=== PATIENT | female | born 1990 | race African-American/Black ===

== ENCOUNTER 2019-05-30 16:19 | Inpatient (IN) | payer BC, MEDICAID ==
[2019-05-30 18:57] LABS: ABS Basophils 0.1 10^3/ul (0-0.2); ABS Eosinophils 0.2 10^3/ul (0-0.6); ABS Lymphocytes 1.8 10^3/ul (1.0-4.8); ABS Monocytes 0.6 10^3/ul (0-0.8); ABS Neutrophils 7.8 10^3/ul (1.5-7.7); Eosinophil % 1.8 %; Hematocrit 32 % (35-47); Hemoglobin 11.1 g/dL (12.0-16.0); Lymphocyte % 16.9 %; Mean Corpuscular HGB Conc 35 g/dL (31-36); Mean Corpuscular Hemoglobin 30 pg (27-31); Mean Corpuscular Volume 87 fL (80-97); Mean Platelet Volume 8.2 fL (7.4-10.4); Platelet Count 230 10^3/uL (150-450); Red Blood Count 3.66 10^6 /uL (3.70-4.87); Red Cell Distribution Width 13 % (10-15); White Blood Count 10.4 10^3/uL (3.5-10.8)
--- NOTE | 2019-05-30 19:02 | ED ---
Psychiatric Complaint - HPI Summary HPI Summary: Patient is a 29 y/o F presenting to ED for SI. She denies plan of SI. Patient has been hospitalized for psychiatric issues three years ago. PMHx of bipolar disorder and PTSD. She denies any other medical problems or symptoms. Patient reports she is unsure of FMHx. - History Of Current Complaint Chief Complaint: EDMentalHealth Time Seen by Provider: 05/30/19 17:09 Hx Obtained From: Patient Hx Last Menstrual Period: 08/13/17 Onset/Duration: Still Present Timing: Constant Severity Currently: None - pain denied on triage Character: Depressed Has Suicidal: Reports: Thoughts. Denies: With A Plan - Allergies/Home Medications Allergies/Adverse Reactions: Allergies Allergy/AdvReac Type Severity Reaction Status Date / Time No Known Allergies Allergy Verified 04/26/19 09:26 Home Medications: Home Medications Ranitidine TAB (NF) [Zantac TAB (NF)] 150 mg PO BID 05/30/19 [History Confirmed 05/30/19] lamoTRIgine [Lamotrigine] 50 mg PO DAILY 05/30/19 [History Confirmed 05/30/19] PMH/Surg Hx/FS Hx/Imm Hx Endocrine/Hematology History: Denies: Hx Diabetes Cardiovascular History: Denies: Hx Hypertension Respiratory History: Reports: Hx Asthma - EXERCISE INDUCED History: Denies: Hx Renal Disease Sensory History: Reports: Hx Contacts or Glasses Opthamlomology History: Reports: Hx Contacts or Glasses Psychiatric History: Reports: Hx Anxiety, Hx Depression, Hx Post Traumatic Stress Disorder, Hx Bipolar Disorder, Hx Substance Abuse Denies: Hx Eating Disorder, Hx of Violent Episodes Against Others - Surgical History Surgery Procedure, Year, and Place: cholecystectomy 2006 Infectious Disease History: No Infectious Disease History: Denies: History Other Infectious Disease, Traveled Outside the [place] in Last 30 Days - Family History Known Family History: Negative: Cardiac Disease, Hypertension, Diabetes - Social History Alcohol Use: Rare Hx Substance Use: Yes Substance Use Type: Reports: None Substance Use Comment - Amount & Last Used: marijuana occasionaly Hx Tobacco Use: Yes Smoking Status (MU): Former Smoker Type: Cigarettes Amount Used/How Often: 1/4 PPD Length of Time of Smoking/Using Tobacco: 10 YEARS Have You Smoked in the Last Year: Yes Review of Systems Negative: Fever - on vitals, temp is 97.4 F Psychological: Other - positive - SI w/ no plan Positive: Depressed All Other Systems Reviewed And Are Negative: Yes Physical Exam - Summary Physical Exam Summary: General: Well appearing, no distress HEENT: PERRL Cardiovascular: Skin is well perfused Pulmonary: No respiratory distress, no tachypnea Abdomen: Non-distended Skin: Warm, pink, dry MSK: No edema Neuro: A&Ox3 Psych: Depressed, Positive SI Triage Information Reviewed: Yes Vital Signs On Initial Exam: Initial Vitals Temp Pulse Resp BP Pulse Ox 97.4 F 70 16 136/69 99 05/30/19 16:42 05/30/19 16:42 05/30/19 16:42 05/30/19 16:42 05/30/19 16:42 Vital Signs Reviewed: Yes Diagnostics - Vital Signs Vital Signs Temp Pulse Resp BP Pulse Ox 05/30/19 16:42 97.4 F 70 16 136/69 99 - Laboratory Lab Results: Lab Results 05/30/19 Range/Units 18:49 WBC 10.4 (3.5-10.8) 10^3/uL RBC 3.66 L (3.70-4.87) 10^6 /uL Hgb 11.1 L (12.0-16.0) g/dL Hct 32 L (35-47) % MCV 87 (80-97) fL MCH 30 (27-31) pg MCHC 35 (31-36) g/dL RDW 13 (10-15) % Plt Count 230 (150-450) 10^3/uL MPV 8.2 (7.4-10.4) fL Neut % (Auto) 74.8 % Lymph % (Auto) 16.9 % Ida % (Auto) 5.7 % Eos % (Auto) 1.8 % Baso % (Auto) 0.8 % Absolute Neuts (auto) 7.8 H (1.5-7.7) 10^3/ul Absolute Lymphs (auto) 1.8 (1.0-4.8) 10^3/ul Absolute Monos (auto) 0.6 (0-0.8) 10^3/ul Absolute Eos (auto) 0.2 (0-0.6) 10^3/ul Absolute Basos (auto) 0.1 (0-0.2) 10^3/ul Absolute Nucleated RBC 0.0 10^3/ul Nucleated RBC % 0.0 Result Diagrams: 05/30/19 18:49 05/30/19 18:49 Lab Statement: Any lab studies that have been ordered have been reviewed, and results considered in the medical decision making process. Re-Evaluation - Re-Evaluation First Eval Re-Evaluation Time: 17:23 Comment: Patient was medically cleared for [facility]. Course/Dx - Differential Dx/Clinical Impression Provider Diagnosis: Depressive disorder - Physician Notifications Discussed Care Of Patient With: Miki Roger Time Discussed With Above Provider: 18:30 Instructed by Provider To: Other - MH worker Navarro reports that the patient's case was reviewed by Dr. Roger, patient will be a [place] [facility] [place] - Sign-Out/Discharge Documenting (check all that apply): Patient Departure - admit Patient Received Moderate/Deep Sedation with Procedure: No - Discharge Plan Condition: Stable [place] [place]errals: No Primary Care Phys,NOPCP [Primary Care Provider] - Additional Instructions: Please acyclovir 3 times a day for 10 days. Please take Keflex 500 twice a day for 5 days. - Billing Disposition and Condition Condition: STABLE Disposition: [place] [facility] [place] Attestation Statements Document Initiated by Scribe: Yes Documenting Scribe: KARLA WOODSON Provider For Whom Davionibharjeet is Documenting (Include Credential): FERCHO DENT MD Scribe Attestation: IKARLA, scribed for FERCHO DENT MD on 05/30/19 at 2014. Scribe Documentation Reviewed: Yes Provider Attestation: The documentation as recorded by the KARLA love accurately reflects the service I personally performed and the decisions made by me, FERCHO DENT MD Status of Scribe Document: Viewed
[2019-05-30 19:14] LABS: ALT 18 U/L (7-52); AST 21 U/L (13-39); Albumin 3.6 g/dL (3.2-5.2); Albumin/Globulin Ratio 1.3 (1-3); Alkaline Phosphatase 61 U/L (34-104); Anion Gap 8 mmol/L (2-11); BUN/Creatinine Ratio 16.7 (8-20); Blood Urea Nitrogen 9 mg/dL (6-24); CO2 Carbon Dioxide 22 mmol/L (22-32); Calcium 8.8 mg/dL (8.6-10.3); Chloride 106 mmol/L (101-111); EGFR African American 162.7 (>60); EGFR Non-African American 134.4 (>60); Globulin 2.8 g/dL (2-4); Glucose 84 mg/dL (70-100); Potassium 3.6 mmol/L (3.5-5.0); Sodium 136 mmol/L (135-145); Total Protein 6.4 g/dL (6.4-8.9)
[2019-05-30 19:42] LABS: Acetaminophen < 15 mcg/mL; Alcohol < 10 mg/dL (<10); Salicylate < 2.50 mg/dL (<30)
[2019-05-30 19:55] LABS: Urine Appearance Cloudy; Urine Bacteria 1+ (Absent); Urine Bilirubin Negative (Negative); Urine Blood Negative (Negative); Urine Color Yellow; Urine Glucose Negative (Negative); Urine Ketones Negative (Negative); Urine Nitrite Negative (Negative); Urine Protein Negative (Negative); Urine Red Blood Cell 1+(3-5/hpf) (Absent); Urine Squamous Epithelial Cell Present (Absent); Urine Urobilinogen Negative (Negative); Urine White Blood Cell Trace(0-5/hpf) (Absent)
[2019-05-30 19:58] LABS: TSH (Thyroid Stimulating Horm) 2.53 mcIU/mL (0.34-5.60)
[2019-05-30 20:01] LABS: Urine Benzodiazepine Screen None Detected (None Detect); Urine Opiates Screen None Detected (None Detect)
[2019-05-30] MEDS ORDERED: Acetaminophen TAB* 325 MG PO PRN (21:17)
[2019-05-30] MEDS ORDERED: Al Hydrox/Mg Hydrox/Simet LIQ* 30 ML UDC PO PRN (21:17)
[2019-05-30] MEDS ORDERED: Metoclopramide TAB* 10 MG PO PRN (21:20)
[2019-05-30] MEDS: Famotidine TAB* 20 MG PO SCH (21:44)
--- OUTSIDE RECORDS SUMMARY | 2019-05-31 01:20 | XMS REPORT | Continuity of Care Document ---
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 Payers Date Identification Numbers Payment Provider Subscriber Policy Number: [id number] [employer] BC/BS [facility] Heraclio Grijalva PayID: [id number] [address] [place] [address] Policy Number: [id number] [place] Heraclio Grijalva PayID: [id number] [address] [place] [address] Policy Number: [id number] [employer] BC/BS [facility] Abida Rg Group Number: [id number] [address] PayID: [id number] [place] [address] Effective: 2011 Policy Number: [employer] BC/BS [place] Yair Grijalva [id number] [place] Expires: 2013 PayID: [id number] [address] [place] [address] Problems Resolved Problems Provider Date Supervison Of Normal Other ISREAL Zayas Onset: 11/16/2012 Resolved: 05/29/2019 Family History Date Family Member(s) Observation Comments Father Unknown Mother A&W Number of Children 2 First Son A&W First Daughter A&W Number of Siblings Siblings: 1 First Brother Asthma Paternal Grandfather Unknown Paternal Grandmother Unknown Maternal Grandfather Unknown Maternal Grandmother Unknown Social History Type Date Description Comments Sex Unknown Education Highest level of education completed is 12th grade Marital Status Patient is single Living Situation Lives with son Pets Household pets include a dog 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 [place] Cigarette Use Smoked 5 cigarettes/ day prior to , quit with Alcohol Denies alcohol use Tobacco Use Start: Unknown End: Patient is a former smoker Unknown Tobacco Use Start: Unknown Patient is a current 3 qd smoker, smokes every day Drug Use Sporadically used marijuana Daily Caffeine Does not consume caffeine Exercise Type/Frequency Exercises sporadically Current Seat Belt/Car Seat Always uses a seat belt Allergies, Adverse Reactions, Alerts Description No Known Drug Allergies Medications Active Medications SIG Qnty Indications Ordering Provider Date Ranitidine 150 take one tablet by 60tabs Serina Reyna, [facility] 05/29/2019 Maximum Strength mouth daily. May increased to bid 150mg Tablets if needed Lamotrigine 1 po qd Unknown 25mg Tablets 1 by mouth every Unknown Tablets day History Medications Diclegis take 2 tabs qhs. if 100tabs [place] Damon, 02/06/2019 - 10-10mg symptoms persist, add [facility] 05/01/[address] 1 tab qam starting day 3. if symptoms persist, add 1 tab q afternoon starting day4 Promethazine HCL 1 tab by mouth every 30tabs [place] Damon, 02/06/2019 - 12.5mg 4-6 hours as needed [facility] 04/30/2019 Tablets for nausea and vomiting Zofran 1 tab sublingually 30tabs Susana 01/29/2019 - 4mg Tablets every 6-8 hours as Minerva, [facility] 04/30/2019 needed nausea/vomiting Levora 0.15/30-28 1 po qd 28tabs Martha, 11/29/2013 - MD Joan 01/29/2019 0.15-30mg-mcg Tablets No Active Medications Unknown 08/29/2013 - 11/29/2013 Zantac 1 pill by mouth twice 60tabs Tita Camargo 04/20/2013 - 150mg Tablets a day Vamshi [facility] 07/30/2013 Ferrous Gluconate 1 po qd 30tabs Yung Arango 03/22/2013 - Artur Diego 07/30/2013 324(38Fe) mg Tablets Zofran Odt 1 tab sublingually q 30tabs Serina Reyna, 10/23/2012 - 4mg Tablets 6-8 hours prn [facility] 03/11/2013 Dispers nausea/vomiting Diflucan take 1 tablet now, 2tabs Lucy Swift, 06/12/2008 - 200mg Tablets repeat in 48 hours [facility] 06/17/2008 prn Metrogel-Vaginal 1 applicator qhs x 5 Lucy Swift, 06/12/2008 - 0.75% days CNM 06/17/2008 Gel Pyridium 1 tid X 2 Days 6tabs Lucy Swift, 01/16/2008 - 100mg Tablets [facility] 06/12/2008 Ortho-Cyclen 1 PO qd Lucy Swift, 02/07/2007 - CN 06/12/2008 0.035mg;0.25 mg Tablets Flagyl 1 po bid x 7 days 14tabs Rebeka Stocktonkins, 08/27/2006 - 500mg Tablets CN 02/07/2007 Vitamins, 1 po qd 30tabs Cam Larry, 07/21/2006 - Chewable C.N.M. 02/07/2007 Tablets Nuvaring Unknown - Ring 10/23/2012 Prozac Unknown - 40mg Capsules 10/23/2012 + Dha 1 po qd 90units Unknown - 07/30/2013 27-1&250mg Misc Vital Signs Date Vital Result Comment 05/02/2019 3:05pm BP Systolic 112 mmHg BP Diastolic 66 mmHg Height 64 inches 5'4" Weight 192.00 lb BMI (Body Mass Index) 33.0 kg/m2 3 Parity 2 03/14/2019 9:55am Height 64 inches 5'4" 3 Parity 2 03/05/2019 1:05pm BP Systolic 108 mmHg BP Diastolic 62 mmHg Height 64 inches 5'4" Weight 181.00 lb BMI (Body Mass Index) 31.1 kg/m2 Last Menstrual Period [id number] 3 Parity 2 11/29/2013 1:51pm BP Systolic 122 mmHg BP Diastolic 78 mmHg Height 64 inches 5'4" Weight 190.00 lb BMI (Body Mass Index) 32.6 kg/m2 Last Menstrual Period [id number] 2 Parity 2 10/04/2013 2:25pm BP Systolic 136 mmHg BP Diastolic 64 mmHg Height 64.50 inches 5'4.50" Weight 192.00 lb BMI (Body Mass Index) 32.4 kg/m2 Last Menstrual Period [id number] 08/29/2013 10:25am BP Systolic 102 mmHg BP Diastolic 64 mmHg Height 64.50 inches 5'4.50" Weight 195.00 lb BMI (Body Mass Index) 33.0 kg/m2 Last Menstrual Period [id number] 2 Parity 2 07/11/2013 11:38am BP Systolic 118 mmHg BP Diastolic 66 mmHg Height 64.75 inches 5'4.75" Weight 199.00 lb BMI (Body Mass Index) 33.4 kg/m2 Last Menstrual Period [id number] del 06/05/13 2 Parity 2 11/16/2012 10:11am BP Systolic 110 mmHg BP Diastolic 62 mmHg Height 64.75 inches 5'4.75" Weight 154.00 lb BMI (Body Mass Index) 25.8 kg/m2 Last Menstrual Period [id number] 2 Parity 1 06/12/2008 1:11pm BP Systolic 118 mmHg BP Diastolic 64 mmHg Weight 194.00 lb Last Menstrual Period [id number] 02/07/2007 1:43pm BP Systolic 140 mmHg BP Diastolic 66 mmHg Weight 186.00 lb Last Menstrual Period [id number] 06/24/2006 8:40pm Height 64 inches 5'4" Weight 170.00 lb BMI (Body Mass Index) 29.2 kg/m2 Results Test Date Facility Test Result H/L Range Note THC Confirmation 04/02/2019 [facility] Urine Carboxy 384 ng/mL 1 [place] [address] THC Confirm [phone] Urine THC Interpretation Positive. 2 Afp,Screen 04/02/2019 [facility] Results [place] [address] [phone] Neural Tube Defect Estimate SEE BELOW 3 Collection Date 04/02/19 Maternal Date of 89 Calculated Age At DAIN 29 years Maternal Weight 189 lbs Insulin Dependent Diabetes No Current Cigarette Smoking Stat non-smoker Patient Race Black Number of Fetuses 1 Number of Chorions Monochorionic Ivf No Prev Preg w/Neural Tube Defect N o Patient/Father of Baby Has NTD N o Initial Or Repeat Testing Initial testing Physician Phone Number [phone] DAIN by LMP 09/20/19 GA On Collection By Dates SEE BELOW wk,d 4 GA Used In Risk Estimate Dates estimate Afp 24.6 ng/mL Afp MoM 0.76 MoM <2.50 Interpretation See Comment 5 Additional Comments See Comment 6 Recommended Follow Up None. General Test Information See Comment 7 Urine Drug 04/02/2019 [facility] Urine Amphetamine Negative ng/ mL 8 Comp 20 [place] [address] [phone] Urine Barbiturates Negative ng/mL 9 Urine Benzodiazepines Negative ng/mL 10 Urine Cocaine Negative ng/mL 11 Urine Phencyclidine Negative ng/mL Cutoff: 25 Urine Tetrahydrocannabinol Presumptive Posi <SEE NOTE> Abnormal Cutoff: 50 12 ng/mL Creatinine, Urine 147.0 mg/dL Specific Strawberry 1.011 pH 7.8 Oxidants Negative 13 Adulterants Comment Normal Codeine, Ur Not Detected ng/mL Cutoff: 25 14 Ezzyjqr-0-innc-glucuronide, Ur Not Detected ng/mL 15 Morphine, Ur Not Detected ng/mL Cutoff: 25 16 Ohfdbcoy-6-fdlb-glucuronide, U Not Detected ng/mL 17 6-monoacetylmorphine, Ur Not Detected ng/mL Cutoff: 25 18 Hydrocodone, Ur Not Detected ng/mL Cutoff: 25 19 Norhydrocodone, Ur Not Detected ng/mL Cutoff: 25 20 Dihydrocodeine, Ur Not Detected ng/mL Cutoff: 25 21 Hydromorphone, Ur Not Detected ng/mL Cutoff: 25 22 Mzaxwporkpzxh9vqnyzuenqxpmiqt Not Detected ng/mL 23 Oxycodone, Ur Not Detected ng/mL Cutoff: 25 24 Noroxycodone, Ur Not Detected ng/mL Cutoff: 25 25 Oxymorphone, Ur Not Detected ng/mL Cutoff: 25 26 Wbnrfmllggg-2-mxzl-glucuronide Not Detected ng/mL 27 Noroxymorphone, Ur Not Detected ng/mL Cutoff: 25 28 Fentanyl, Ur Not Detected ng/mL Cutoff: 2 29 Norfentanyl, Ur Not Detected ng/mL Cutoff: 2 30 Meperidine, Ur Not Detected ng/mL Cutoff: 25 31 Normeperidine, Ur Not Detected ng/mL Cutoff: 25 32 Naloxone, Ur Not Detected ng/mL Cutoff: 25 33 Koaxbbje-0-foxw-glucuronide, U Not Detected ng/mL 34 Methadone, Ur Not Detected ng/mL Cutoff: 25 35 Eddp, Ur Not Detected ng/mL Cutoff: 25 36 Propoxyphene, Ur Not Detected ng/mL Cutoff: 25 37 Norpropoxyphene, Ur Not Detected ng/mL Cutoff: 25 38 Tramadol, Ur Not Detected ng/mL Cutoff: 25 39 O-desmethyltramadol, Ur Not Detected ng/mL Cutoff: 25 40 Tapentadol, Ur Not Detected ng/mL Cutoff: 25 41 N-desmethyltapentadol, Ur Not Detected ng/mL Cutoff: 50 42 Skyqqodzfi-kwrr-xisshuplvyx, U Not Detected ng/mL 43 Buprenorphine, Ur Not Detected ng/mL Cutoff: 5 44 Norbuprenorphine, Ur Not Detected ng/mL Cutoff: 5 45 Norbuprenorphine glucuronide Not Detected ng/mL Cutoff: 20 46 Opioid Interpretation See Comment 47 Urine Culture And 03/05/2019 [facility] Urine Culture SEE RESULT [address] [place] [address] BELOW [phone] GC/Chlamydia Dna 03/05/2019 [facility] Chlam[place] [address] trachomatis [phone] Rna Neisseria gonorrhoeae (GC) Rna Negative Negative Laboratory test 03/05/2019 [facility] Cytology SEE RESULT [address] [place] [address] BELOW [phone] Lead 03/05/2019 [facility] Lead,Venous, B < 1.0 g/dL 0.0- 4. 50 [place] [address] 9 [phone] Venous/Capillary Venous Submitting Laboratory Phone [phone] Chromosomes 13, 18, 21 03/05/2019 [facility] Chromosome 13 Negative N 52 + Sex Chromosome Aneuploidy Chromosome 18 Aneuploidy Negative N 53 Chromosome 21 Aneuploidy Negative N 54 Sex Chromosome Analysis Male N 55 PDF Report SEE IMAGE CF + Sma 03/05/2019 [facility] cystic fibrosis Negative N spinal muscular atrophy Negative N 56 PDF Report SEE IMAGE PNL No 03/05/2019 [facility] Rubella Screen Immune Immune 57 [place] [address] [phone] Hemoglobin A1c 5.0 % N 4.0-5.6 58 Hepatitis B Surface Ag Nonreactive Nonreactive 59 Syphillis Igg W/Reflex RPR Negative Negative 60 HIV 1/2 AB 03/05/2019 [facility] HIV 1 2 Nonreactive Nonreactive [address] [place] [address] Antibody [phone] Type And 03/05/2019 [facility] [place] [address] Blood Type [phone] Antibody Screen NEGATIVE CBC With No 03/05/2019 [facility] White Blood 8.4 10^3/uL N 3.5-10.8 [place] [address] Count [phone] Red Blood Count 3.78 10^6/uL N 3.70-4.87 Hemoglobin 11.6 g/dL Low 12.0-16.0 Hematocrit 35 % N 35-47 Mean Corpuscular Volume 93 fL N 80-97 Mean Corpuscular Hemoglobin 31 pg N 27-31 Mean Corpuscular HGB Conc 33 g/dL N 31-36 Red Cell Distribution Width 14 % N 10.5-15 Platelet Count 244 10^3/uL N 150-450 Mean Platelet Volume 9.5 fL N 7.4-10.4 GC/Chlamydia Dna 08/29/2013 [facility] GC/Chlamydia Rna (SEE NOTE) [address] [place] [address] [phone] Laboratory test 06/02/2013 [facility] Amnisure No Membrane [address] [place] [address] Rupt <SEE [phone] NOTE> Laboratory test 05/21/2013 [facility] B Strep (SEE NOTE) [address] [place] [address] Culture Screen [phone] Glucose Tolerance 03/21/2013 [facility] GTT 2HR (SEE NOTE) 65 [place] [address] Gestational [phone] CBC With No Diff 03/21/2013 [facility] White Blood Count 10.0 10 ^3/uL 4.8- [place] [address] 10.8 [phone] Red Blood Count 3.47 10^6/uL Low 4.0-5.4 Hemoglobin 10.5 g/dL Low 12.0-16.0 Hematocrit 32 % Low 35-47 Mean Corpuscular Volume 92 fL 80-97 Mean Corpuscular Hemoglobin 30 pg 27-31 Mean Corpuscular HGB Conc 33 g/dL 31-36 Red Cell Distribution Width 13 % 10.5-15 Platelet Count 195 10^3/uL 150-450 Mean Platelet Volume 9 um3 7.4-10.4 Sequential Integreated SCRN 2 OK 12/20/2012 [facility] Interpretation SEE BELOW 66 Risk For Ontd UNAVAILABLE Age Risk Down Syndrome 1:1100 GUCCI Down Syndrome Risk 1:3400 <1:270 GUCCI Trisomy 18 Risk <1:5000 <1:100 Calculated Gestational Age 14.9 67 Afp,Serum 36.7 NG/ML Afp Mom 1.24 68 HCG,Serum 63.2 IU/mL HCG Mom 1.68 Estriol,Free 0.22 NG/ML Estriol Mom 0.58 Inhibin A,Dimeric 370 pg/mL Inhibin A Mom 2.09 Lucy-A 737 NG/ML Lucy-A Mom 0.96 NT Mom 0.90 69 Referring Physician Name YUNG DIEGO A Referring Physician Phone [phone] Referring Physician Npi [id number] Specimen # From Part 1 [id number] Date Of 1990 Collection Date 12/20/2012 Maternal Weight 154 LBS Est'd Date Of Delivery 06/12/2013 Nuchal Translucency 1.2 MM [place] Rump Length 57 MM Ultrasound Date 11/30/2012 Nasal Bone NG Mother's Ethnic Origin OTHER Insulin Depend Diabetic NO Repeat Specimen NO Number Of Fetuses 1 HX Of Neural Tube Defects NO Twin B Nasal Bone NG Sequential Integrated SCRN 1 [place] 11/30/2012 [facility] Interpretation SEE BELOW 70 Age Risk Down Syndrome 1:820 GUCCI Down Syndrome Risk IN PROCESS <1:50 GUCCI Trisomy 18 Risk IN PROCESS <1:100 Calculated Gestational Age 12.0 71 Lucy-A 737 NG/ML Lucy-A Mom 0.96 HCG,Serum 73.7 IU/mL HCG Mom 1.23 NT Mom 0.90 72 Referring Physician Name YUNG DIEGO Referring Physician Phone [phone] Referring Physician Npi [id number] Date Of 1990 Collection Date 11/30/2012 Maternal Weight 154 LBS Est'd Date Of Delivery 06/12/2013 DAIN Determined By U/S Mother's Ethnic Origin Number Of Fetuses 1 Insulin Depend Diabetic NO Repeat Specimen NO HX Of Neural Tube Defects NO Brief History (NTD) NOT GIVEN Prev Down Synd NO Donor Egg NO Donor Age:Egg Retrieval NOT GIVEN Ultrasound Date 11/30/2012 Credit Risk Management Director's Name KATHRYN ACOSTA NTQR Credit Risk Management Director Id# [id number] NTQR Location Id# [id number] NTQR Reading Phys Id# [id number] [facility] Credit Risk Management Director Id# NOT GIVEN [place] Rump Length 57 MM Nuchal Translucency 1.2 MM Nasal Bone NOT GIVEN If Twins NOT GIVEN Twin B CRL NOT GIVEN MM Twin B NT NOT GIVEN MM Twin B Nasal Bone NOT GIVEN PNL No 11/16/2012 [facility] Rubella [place] [address] [phone] Hemoglobin A1c 5.2 % Less than 6.0 73 Hepatitis B Surface Antigen Nonreactive Nonreactive 74 RPR 11/16/2012 [facility] Syphilis [place] [address] [phone] RPR Nonreactive Nonreactive RPR Titer TNP Pediatric/Maternal YES CBC With No 11/16/2012 [facility] White Blood 7.2 10^3/uL 4.8 -10.8 [place] [address] Count [phone] Red Blood Count 3.83 10^6/uL Low 4.0-5.4 Hemoglobin 12.0 g/dL 12.0-16.0 Hematocrit 35 % 35-47 Mean Corpuscular Volume 92 fL 80-97 Mean Corpuscular Hemoglobin 31 pg 27-31 Mean Corpuscular HGB Conc 34 g/dL 31-36 Red Cell Distribution Width 13 % 10.5-15 Platelet Count 214 10^3/uL 150-450 Mean Platelet Volume 10 um3 7.4-10.4 Type And Screen 11/16/2012 [facility] [place] [address] [phone] Antibody Screen NEGATIVE HIV 1/2 AB 11/16/2012 [facility] HIV 1 2 Nonreactive Nonreactive [address] [place] [address] Antibody [phone] Urine Culture 11/16/2012 [facility] Urine (SEE NOTE) [address] [place] [address] Culture Sensitivities [phone] GC/Chlamydia Dna 11/16/2012 [facility] GC/Chlamydi (SEE NOTE) [address] [place] [address] a Rna [phone] Laboratory test 11/16/2012 [facility] Cytology RUN DATE: neg [address] [place] [address] <SEE [phone] NOTE> Laboratory test 08/12/2008 [facility] Surgical [address] [place] [address] Pathology --- <SEE [phone] NOTE> GC/Chlamydia Dna 06/12/2008 [facility] GC By NEGATIVE Negative [address] [place] [address] Aptima [phone] CHL By Aptima NEGATIVE Negative 81 Laboratory test 12/12/2006 [facility] Genital For FINAL: [address] [place] [address] GRP B Strep NEGATIVE <SEE [phone] Only NOTE> CBC With 11/01/2006 [facility] White Blood 10.3 CUMM 4.8-10 [place] [address] Count .8 [phone] Abs Basophils 0.1 0-0.2 Abs Eosinophils 0.1 0-0.6 Absolute Neutrophil Count 7.9 High 1.5-7.7 Abs Lymphs 1.4 1.0-4.8 Abs Mononuclear 0.8 0-0.8 Basophil % 1.2 % 0-2 Hematocrit 29 % Low 35-47 Hemoglobin 10.1 g/dL Low 12.0-16.0 Eosinophil % 1.0 % 0-6 Gran % 76.2 % 38-83 Lymph % 13.9 % Low 20-45 Mean Corpuscular HGB Cone 35 g/dL 32-36 Mean Corpuscular Hemoglob 30 pg 27-31 Mean Corpuscular Volume 84 um3 79-97 Mean Platelet Volume 6.9 um3 Low 7.4-10.4 Mononuclear % 7.7 % 1-9 Platelet Count 269 CUMM 150-450 Red Cell Count 3.42 CUMM Low 4.2-5.4 Redcell Distribution WDTH 12 % 10.5-15 Liver Function 11/01/2006 [facility] Albumin/Globulin Ratio 0.8 Low 1-3 [place] [address] [phone] Albumin 2.6 GM/DL Low 3.6-5.4 Alkaline Phosphatase 76 U/L Low 130-390 Alt (SGPT) 10 U/L Low 14-54 Ast (Sgot) 17 U/L 12-42 Bilirubin Direct < 0.1 mg/dL Low 0.1-0.5 Globulin 3.3 GM/DL 2-4 Bilirubin Total 0.1 mg/dL Low 0.4-1.5 Total Protein 5.9 GM/DL Low 6.2-8.1 Urinalysis W/Microscopic 09/15/2006 [facility] [place] [address] [phone] Appearance-Urine CLEAR Bilirubin-Ur NEGATIVE Negative Blood-Urine NEGATIVE Negative Epith Cells-Ur MODERATE Esterase-Urine NEGATIVE Negative Glucose-Urine NEGATIVE Negative Ketones-Urine NEGATIVE Negative Nitrite NEGATIVE Negative PH-Urine 7.0 5-9 Protein-Urine NEGATIVE Negative Jqbayfhlpyhk-Um-LKL NEGATIVE Negative Specific Strawberry-Ur 1.010 1.010-1.030 Amorphous Sed-U 1+ Bacteria-Urine 1+ Mucus Urine LARGE RBC-Urine 0-2 0-2 WBC-Urine 0-2 0-5 DS3 09/15/2006 [facility] Amphetamines Urine [place] [address] Screen [phone] Benzodiazepine Ur Screen NONE DETECTED None Detect Cocaine Metabolites Urine NONE DETECTED None Detect Opiates Urine Screen NONE DETECTED None Detect PCP Urine Screen NONE DETECTED None Detect 83 Cannabinoid Urine Screen NONE DETECTED None Detect Barbituates Urine Screen NONE DETECTED None Detect GC/Chlamydia Dna 08/30/2006 [facility] CHL By NEGATIVE Negative [address] [place] [address] Aptima [phone] GC By Aptima NEGATIVE Negative 85 Laboratory 08/23/2006 [facility] Cytology [address] [place] [address] <SEE NOTE> [phone] 1 06/27/2006 [facility] [place] [address] Surface Ag [phone] Rubella Screen IMMUNE Immune White Blood Count 7.5 CUMM 4.8-10.8 Hematocrit 34 % Low 35-47 87 Hemoglobin 11.2 g/dL Low 12.0-16.0 Mean Corpuscular HGB Cone 33 g/dL 32-36 Mean Corpuscular Hemoglob 30 pg 27-31 Mean Corpuscular Volume 92 um3 79-97 Mean Platelet Volume 9.6 um3 7.4-10.4 Platelet Count 259 CUMM 150-450 88 Red Cell Count 3.68 CUMM Low 4.2-5.4 Redcell Distribution WDTH 15 % 10.5-15 RPR NON REACTIVE Nonreactive 89 1 TS 06/27/2006 [facility] Patient Blood Type O POSITIVE KEN Cortez [phone] Antibody Screen NEGATIVE Laboratory 06/27/2006 [facility] Urine NG 90 test finding KEN Cortez Culture [phone] Sensitivi Vad 06/27/2006 [facility] Vad Final NONREACTIVE Nonreactive 91 KEN Cortez [phone] Vad Form Received YES Nonreactive GC/ZHL On Thin 06/27/2006 [facility] CHL On Thin NEGATIVE Negative 92 Prep KEN Cortez Prep Vial [phone] GC On Thin Prep Vial NEGATIVE Negative 93 Laboratory test 06/24/2006 [facility] Please note COMMENT 94 finding Laboratory test 06/24/2006 [facility] Varicella 3.26 index High 0.00-0.90 95 finding Zoster IgG Hemoglobinopathy 06/24/2006 [facility] Hgb Solubility Negative Negative Profile Hgb A 97.8 % 94.0-98.0 Hgb S 0.0 0.0 Hgb C 0.0 0.0 Hgb A2 2.2 % 0.7-3.1 Hgb F 0.0 % 0.0-2.0 Hgb Variant COMMENT Interpretation COMMENT 96 1 TS 06/24/2006 [facility] Patient Blood Type O POSITIVE KEN Cortez [phone] Antibody Screen NEGATIVE Laboratory test 06/24/2006 [facility] Cytology <SEE 97 finding KEN Cortez NOTE> [phone] 1 REFERENCE VALUE Cutoff: 3.0 2 ADDITIONAL INFORMATION This report is intended for use in clinical monitoring and management of patients. It is not intended for use in employment-related testing. This test was developed and its performance characteristics determined by [facility] in a manner consistent with CLIA requirements. This test has not been cleared or approved by the U.S. Food and Drug Administration. Test Performed by: [facility] - [address] [address] 3 RESULT: 4 RESULT: 15,4 5 RESULT: Screen negative for neural tube defects. 6 RESULT: Reviewed by Mason Acuna M.D. 7 This screening provides an estimation of risk, not a diagnosis. Incorrect or incomplete information may significantly alter results. Results may be unreliable in twin pregnancies with a demise. Results are not available for pregnancies with triplets and higher-order multiples. A positive result occurs when the AFP MoM equals or exceeds 2.5. Screen results and family history influence individual risk. If there is a family history of a neural tube defect, chromosome abnormality, or other inherited condition, consider the option of a genetic consultation. For further information, please contact the maternal screening laboratory at . ADDITIONAL INFORMATION This test was developed and its performance characteristics determined by [facility] in a manner consistent with CLIA requirements. This test has not been cleared or approved by the U.S. Food and Drug Administration. Test Performed by: [facility] - [address] [address] 8 REFERENCE VALUE Cutoff: 500 9 REFERENCE VALUE Cutoff: 200 10 REFERENCE VALUE Cutoff: 100 11 REFERENCE VALUE Cutoff: 150 12 Presumptive Positive Drug confirmation to follow. Presumptive Positive means that the screening method is positive, but the test needs to be run by a confirmatory method before being finalized. ADDITIONAL INFORMATION This report is intended for use in clinical monitoring or management of patients. It is not intended for use in employment-related testing. 13 REFERENCE VALUE Cutoff: 200 mg/L 14 Tylenol 3 15 Metabolite of codeine REFERENCE VALUE Cutoff: 100 16 Ana Luisa Kent MS Contin; Also a minor metabolite (10%) of codeine and can be seen in low concentrations (<2,000 ng/mL) with poppy seed ingestion. 17 Metabolite of morphine REFERENCE VALUE Cutoff: 100 18 Metabolite of heroin 19 Lortab, [place], Vicodin; Also a very minor metabolite of codeine and impurity (<1%) of oxycodone. 20 Metabolite of hydrocodone 21 Metabolite of hydrocodone 22 Dilaudid, Exalgo; Also a metabolite of hydrocodone and a minor (<5%) metabolite of morphine. 23 Metabolite of hydromorphone REFERENCE VALUE Cutoff: 100 24 Endocet, Percocet, Oxycontin 25 Metabolite of oxycodone 26 Numorphan, Opana; Also a metabolite of oxycodone. 27 Metabolite of oxymorphone REFERENCE VALUE Cutoff: 100 28 Metabolite of oxymorphone 29 Actiq, Duragesic, Fentora 30 Metabolite of fentanyl 31 Demerol 32 Metabolite of meperidine 33 Narcan 34 Metabolite of naloxone REFERENCE VALUE Cutoff: 100 35 Dolophine 36 Metabolite of methadone 37 Darvon, Darvocet 38 Metabolite of propoxyphene 39 Tradol, Ultram, Ultracet 40 Metabolite of tramadol 41 Nucynta 42 Metabolite of tapentadol 43 Metabolite of tapentadol REFERENCE VALUE Cutoff: 100 44 Buprenex, Suboxone 45 Metabolite of buprenorphine 46 Metabolite of buprenorphine 47 No opioids were detected. The absence of expected drug(s) and/or drug metabolite(s) may indicate non-compliance, altered pharmacokinetics, inappropriate timing of specimen collection relative to drug administration, diluted/adulterated urine, or limitations of testing. ADDITIONAL INFORMATION This test was developed and its performance characteristics determined by [facility] in a manner consistent with CLIA requirements. This test has not been cleared or approved by the U.S. Food and Drug Administration. Test Performed by: [facility] - [facility] [address] [place] [address] 48 SEE RESULT BELOW Name: HERACLIO GRIJALVA : [address]: Susana Palma [facility] Acct: [id number] Unit: [id number] AGE: 29 Location: [facility] Re03/05/19 SEX: F Status: REG REF SPEC: [id number] PILLO: 03/05/19-[address]: Susana Palma [facility] REQ: [id number] RECD: 03/05/19 STATUS: COMP _ SOURCE: URINE SPDESC: ORDERED: Urine Culture COMMENTS: [id number] Urine Source: Random Procedure Result Reported Site Urine Culture Final 03/06/19- 1615 ML No Growth (<1,000 CFU/mL) * - Main Lab . END OF REPORT DEPARTMENT OF PATHOLOGY, [address] [place] [address] Veto Good M.D. Director [facility] # [id number] SEE RESULT BELOW Name: HERACLIO GRIJALVA : [address]: Susana Palma CNM Acct: [id number] Unit: [id number] AGE: 29 Location: [facility] Re03/05/19 SEX: F Status: REG REF SPEC: [id number] PILLO: 03/05/19-[address] [facility] [address]: Susana Palma CNM REQ: [id number] RECD: 03/06/192592 STATUS: SOUT _ ORDERED: TP IMAGE ANALYS, MBA INTERN PHYS INTERP COMMENTS: [id number] EPITHELIAL CELL ABNORMALITIES Low grade squamous intraepithelial lesion (LSIL) A. Ectocervical/Endocervical Specimen Adequacy: Satisfactory of evaluation Transformation zone component identified Patient Information: HPV: Thin Layer Pap Test w/reflex to high risk HPV RNA testing when ASCUS Actual Specimen Date: 03/05/19 Last Menstrual Date: 12/14/18 Date of Last Specimen: 11/16/12 ?: Y Post Menopausal?: N Hysterectomy?: N Previous Abnormal Pap Smears?:N Signed by and Reported on: Veto Good MD 06/18 3150 This Pap test was evaluated with the assistance of the Broadcast.comPrep Test Imaging System. Due to cytologic findings at the telescope repairer microscope, comprehensive manual rescreening by a Inspector Boiler may be required. The Pap Smear is a screening test designed to aid in the detection of premalignant and malignant conditions of the uterine cervix. It is not a diagnostic procedure and should not be used as the sole means of detecting cervical cancer. Both false- positive and false- negative reports do occur. Depending on your risk status, a Pap smear should be obtained and evaluated every 1-3 years. END OF REPORT DEPARTMENT OF PATHOLOGY, [address] [place] [address] Veto Good M.D. Director [facility] # [id number] ADDITIONAL INFORMATION Testing performed by Inductively Coupled Plasma-Mass Spectrometry (ICP-MS). This test was developed and its performance characteristics determined by [facility] in a manner consistent with CLIA requirements. This test has not been cleared or approved by the U.S. Food and Drug Administration. 51 Test Performed by: [facility] [address] [place] [address] 52 No aneuploidy detected. 53 No aneuploidy detected. 54 No aneuploidy detected. 55 Male: No aneuploidy detected. 56 Negative result: Negative for [id number]>G SNP and SMN1: 2 copies. 57 [id number] 58 Therapeutic target for the treatment of diabetes mellitus patients is <7% HBA1C, and in selective patients <6.0%. Please refer to [place] [employer] diabetic care guidelines for further information. 59 [id number] 61 It is recognized that currently available assays for the detection of antibodies to HIV-1 and/or HIV-2 may not detect all infected individuals. HIV antibodies may be undetectable in some stages of the infection and in some clinical conditions. The performance of this assay has not been established for populations of infants or children. Assayed by Chemiluminescence Microparticle Immunoassay on the Siemens Advia Centaur CP. Values obtained with different methods or kits cannot be used interchangeably.The diagnostic specificity of the ADVIA Centaur 1/O/2 Enhanced assay in the low risk population was 99.90% (6052/6058) with a 95% confidence interval of 99.78 to 99.96%. 62 RUN DATE: 08/31/13 [facility] LAB LIVE PAGE 1 RUN TIME: [address] [place] [address] Specimen Inquiry Name: HERACLIO GRIJALVA : [address]: Halle Serrato Acct: [id number] Unit: [id number] AGE: 23 Location: [facility] Re08/29/13 SEX: F Status: REG REF SPEC: [id number] PILLO: 08/29/13-[address] [facility] [address]: Halle Serrato MD REQ: [id number] RECD: 08/29/13 STATUS: COMP _ SOURCE: ENDOCERVIX SPDESC: ORDERED: GC/Chlam RNA QUERIES: Medent Number [id number] Procedure Result Verified Site Chlamydia Trachomatis RNA Final 08/31/13- 1436 ML NEGATIVE for Chlamydia trachomatis rRNA GC (N. gonorrhoeae) RNA Final 08/31/13- 1425 ML NEGATIVE for Neisseria gonorrhoeae rRNA A negative result does not preclude the presence of a C. trachomatis or N. gonorrhoeae infection because results are dependent on adequate specimen collection, absence of inhibitors, and sufficient rRNA to be detected. Test results may be affected by improper specimen collection, improper storage, technical error, or specimen mixup. Limitations of the Procedure: The Aptima Combo 2 Assay is not intended for the evaluation of suspected sexual abuse or for other medico-legal indications. For those patients for whom a false positive result may have adverse psychosocial impact, the [facility] recommends retesting by a method using an alternate technology. Therapeutic failure or success cannot be determined with the Aptima Combo 2 Assay since nucleic acid may persist following appropriate antimicrobial therapy. Results from the Aptima Combo 2 Assay should be interpreted in conjunction with other laboratory and clinical data available to the clinican. CONTINUED ON NEXT PAGE * ML=Testing performed at Main Lab DEPARTMENT OF PATHOLOGY, [facility] [employer] [place], [place] [address] Veto Good M.D. Director [facility] Permit #[id number] RUN DATE: 08/31/13 [facility] LIVE PAGE 2 RUN TIME: 1436 [facility] [employer] [place], [place] [address] Specimen Inquiry Patient: HERACLIO GRIJALVA [id number] (Continued) Specimen: [id number] Collected: 08/29/13 Received: 08/29/134929 (Continued) Procedure Result Verified Site GC (N. gonorrhoeae) RNA Final (continued) 08/31/13- 1425 Performance characteristics for detecting C. trachomatis and N. gonorrhoeae are derived from high prevalence populations. Positive results in low prevalence populations should be interpreted carefully with the understanding that the likelihood of a false positive may be higher than a true positive. END OF REPORT * ML=Testing performed at Main Lab DEPARTMENT OF PATHOLOGY, [facility] [employer] [place], [place] [address] Veto Good M.D. Director [facility] Permit #[id number] 63 No Membrane Rupture 64 RUN DATE: 05/24/13 [facility] LIVE PAGE 1 RUN TIME: 1114 [facility] [employer] [place], [place] [address] Specimen Inquiry Name: HERACLIO GRIJALVA : [address]: Joan Menjivar [facility] Acct: [id number] Unit: [id number] AGE: 23 Location: [facility] Re05/21/13 SEX: F Status: REG REF SPEC: [id number] PILLO: 05/21/13-[address] [facility] [address]: Joan Menjivar [facility] REQ: [id number] RECD: 05/22/13 STATUS: COMP _ SOURCE: CER/VAG/RE SPDESC: ORDERED: Grp B Strp Scrn QUERIES: Is Patient Penicillin Allergic? N Medent Number [id number] Procedure Result Verified Site Group B Strep Culture Screen Final 05/24/13- 1113 ML Group B Strep Screen Negative END OF REPORT * ML=Testing performed at Main Lab DEPARTMENT OF PATHOLOGY, [address] [place] [address] Veto Good M.D. Director [facility] Permit #[id number] 65 GLU Fast 70 Col: 03/21/13 0859 GLU 1HR 91 Col: 03/21/13 0959 GLU 2HR 82 Col: 03/21/13 1059 GTT Interp Col: 03/21/13 0859 Gestational Diabetes Diagnostic: OGTT Glucose Load: samples drawn after 75-gram glucose drink Target Levels: Fasting <92 mg/dl 1hr <180 mg/dl 2hr <153 mg/dl If ONE or more values meet or exceed the target level, gestational diabetes is diagnosed. 66 SCREEN NEGATIVE FOR OPEN NTD, DOWN SYNDROME AND TRISOMY 18 67 [place] rump length (CRL) was used to calculate gestational age. DAIN, if provided, was not used for gestational age dating. 68 Reference Range: <2.50 IDD <1.90 TWINS <4.00 TWINS IDD <3.50 TRIPLETS <4.50 69 The Sequential Integrated Screen combines LUCY-A and hCG with or without a nuchal translucency measurement in the first trimester with AFP, unconjugated estriol, intact hCG and Inhibin A in the second trimester. This provides a useful screening test for detection of open neural tube defects, Down syndrome and Trisomy 18. It should be noted that normal results can never guarantee the of a normal baby and that 2 to 3 percent of newborns have some type of physical or mental defect, many of which are undetectable through any known diagnostic technique. The AFP MOM is below the cut-off of 2.5 MOM, indicating a negative screen for open neural tube defects. However, the [place] Collaborative Study of 1976 found a significantly decreased detection rate for open NTD below 15 weeks gestation. Optimal screening for open NTD is between 16 and 18 weeks. Interpretation reviewed by: Cherelle Gonsalves, Ph.D., [facility]. This is a screening test, not a diagnostic test. This risk assessment is based on demographic data provided by the ordering physician. Please notify the laboratory promptly if any data are incorrect. If you have questions concerning this report: For clinical consultation, call ; For technical questions, call ext [phone]; For recalculations, fax to . This test was developed and its performance characteristics have been determined by [facility]. Performance characteristics refer to the analytical performance of the test. 70 This patient's risk does not exceed the first trimester cut-off for Down syndrome or trisomy 18. The integrated screen calculation is awaiting the second trimester sample. Thank you for submitting this patient's Part 1 specimen. These first trimester values will be incorporated with the second trimester values as part of the integrated testing process. Please submit the Part 2 specimen between 12/21/2012-02/14/2013 (15.0 and 22.9 weeks gestation) with 12/21/2012-01/03/2013 (15.0 - 16.9 weeks gestation) being optimal. When submitting Part 2, please include the following Specimen # from Part 1: [id number] 71 [place] rump length (CRL) was used to calculate gestational age. DAIN, if provided, was not used for gestational age dating. 72 Interpretation reviewed by: Cherelle Gonsalves, Ph.D., [facility]. This is a screening test, not a diagnostic test. This risk assessment is based on demographic data provided by the ordering physician. Please notify the laboratory promptly if any data are incorrect. If you have questions concerning this report: For clinical consultation, call ; For technical questions, call ext [phone]; For recalculations, fax to . This test was developed and its performance characteristics have been determined by [facility]. Performance characteristics refer to the analytical performance of the test. 73 Therapeutic target for the treatment of diabetes Mellitus patients is <7% HBA1C, and in selective patients <6.0%.Please refer to [place] Diabetes Association Diabetic care guidelines for further information. 74 YES 75 It is recognized that currently available assays for the detection of antibodies to HIV-1 and/or HIV-2 may not detect all infected individuals. HIV antibodies may be undetectable in some stages of the infection and in some clinical conditions. The performance of this assay has not been established for populations of infants or children. Assayed by Chemiluminescence Microparticle Immunoassay on the Siemens Advia Centaur CP. Values obtained with different methods or kits cannot be used interchangeably.The diagnostic specificity of the ADVIA Centaur 1/O/2 Enhanced assay in the low risk population was 99.90% (6052/6058) with a 95% confidence interval of 99.78 to 99.96%. 76 RUN DATE: 11/18/12 [facility] LIVE PAGE 1 RUN TIME: [address] [place] [address] Specimen Inquiry Name: HERACLIO GRIJALVA : [address]: Herlinda Urena [employer]TH MED[employer] MIXER MUSHROOM Acct: [id number] Unit: [id number] AGE: 22 Location: [facility] Re11/16/12 SEX: F Status: REG REF SPEC: [id number] PILLO: 11/16/12-[address] [facility] [address]: Herlinda Urena [employer] MUSHROOM REQ: [id number] RECD: 11/16/12 STATUS: COMP _ SOURCE: URINE SPDESC: ORDERED: Urine Culture QUERIES: Medent Number [id number] Procedure Result Verified Site Urine Culture Final 11/18/12- 951 ML Organism 1 NORMAL EDUARDO [place] Count 50-75,000 (Many) CFU/ML END OF REPORT * ML=Testing performed at Main Lab DEPARTMENT OF PATHOLOGY, [facility] [employer] [place], [place] [address] Veto Good M.D. Director [facility] Permit #[id number] RUN DATE: 11/17/12 [facility] LIVE PAGE 1 RUN TIME: [address] [place] [address] Specimen Inquiry Name: HERACLIO GRIJALVA : [address]: Herlinda Urena CNP Acct: [id number] Unit: [id number] AGE: 22 Location: [facility] Re11/16/12 SEX: F Status: REG REF SPEC: [id number] PILLO: 11/16/[address]: Herlinda Urena CNP REQ: [id number] RECD: 11/16/12 STATUS: COMP _ SOURCE: [facility]: ORDERED: GC/Chlam RNA QUERIES: Medent Number [id number] Procedure Result Verified Site Chlamydia Trachomatis RNA Final 11/17/12- 1545 ML NEGATIVE for Chlamydia trachomatis rRNA GC (N. gonorrhoeae) RNA Final 11/17/12- 1545 ML NEGATIVE for Neisseria gonorrhoeae rRNA A negative result does not preclude the presence of a C. trachomatis or N. gonorrhoeae infection because results are dependent on adequate specimen collection, absence of inhibitors, and sufficient rRNA to be detected. Test results may be affected by improper specimen collection, improper storage, technical error, or specimen mixup. Limitations of the Procedure: The Aptima Combo 2 Assay is not intended for the evaluation of suspected sexual abuse or for other medico-legal indications. For those patients for whom a false positive result may have adverse psychosocial impact, the [facility] recommends retesting by a method using an alternate technology. Therapeutic failure or success cannot be determined with the Aptima Combo 2 Assay since nucleic acid may persist following appropriate antimicrobial therapy. Results from the Aptima Combo 2 Assay should be interpreted in conjunction with other laboratory and clinical data available to the clinican. CONTINUED ON NEXT PAGE * ML=Testing performed at Main Lab DEPARTMENT OF PATHOLOGY, [facility] [employer] [place], [place] [address] Veto Good M.D. Director [facility] Permit #[id number] RUN DATE: 11/17/12 [facility] LIVE PAGE 2 RUN TIME: 9135 [facility] [employer] [place], [place] [address] Specimen Inquiry Patient: HERACLIO GRIJALVA [id number] (Continued) Specimen: [id number] Collected: 11/16/12-1039 Received: 11/16/12 (Continued) Procedure Result Verified Site GC (N. gonorrhoeae) RNA Final (continued) 11/17/12- 1540 Performance characteristics for detecting C. trachomatis and N. gonorrhoeae are derived from high prevalence populations. Positive results in low prevalence populations should be interpreted carefully with the understanding that the likelihood of a false positive may be higher than a true positive. END OF REPORT * ML=Testing performed at Main Lab DEPARTMENT OF PATHOLOGY, [facility] [employer] [place], [place] [address] Veto Good M.D. Director [facility] Permit #[id number] RUN DATE: 11/17/12 [facility] LIVE PAGE 1 RUN TIME: [address] [place] [address] Specimen Inquiry Name: HERACLIO GRIJALVA : [address]: Herlinda Urena CNP Acct: [id number] Unit: [id number] AGE: 22 Location: [facility] Re11/16/12 SEX: F Status: REG REF SPEC: [id number] PILLO: 11/16/12-[address]: Ayanna FERRERAHerlinda HusseinYessenia REQ: [id number] RECD: 11/17/12 STATUS: SOUT _ ORDERED: IMAGE ANALYSIS FINAL DIAGNOSIS Negative for Intraepithelial lesion or Malignancy A. Ectocervical/Endocervical Specimen Adequacy: Satisfactory of evaluation Transformation zone component identified Patient Information: HPV: Thin Layer Pap Test w/reflex to high risk HPV DNA testing when ASCUS Actual Specimen Date: 11/16/12 Last Menstrual Date: 09/06/12 ?: Y Other Pertinent History: Prior Unknown Signed (signature on file) NAVEEN Whitley (ASCP) 11/17/12 1048 This Pap test was evaluated with the assistance of the ThinPrep Test Imaging System. Due to cytologic findings at the telescope repairer microscope, comprehensive manual rescreening by a Inspector Boiler may be required. The Pap Smear is a screening test designed to aid in the detection of premalignant and malignant conditions of the uterine cervix. It is not a diagnostic procedure and should not be used as the sole means of detecting cervical cancer. Both false- positive and false- negative reports do occur. Depending on your risk status, a Pap smear shoudl be obtained and evaluated every 1-3 years. END OF REPORT * ML=Testing performed at Main Lab DEPARTMENT OF PATHOLOGY, [address] [place] [address] Veto Good M.D. Director [facility] Permit #[id number] 79 ---- RUN DATE: 08/14/08 [facility] NMI LIVE PAGE 1 RUN TIME: 1247 Specimen Inquiry RUN USER: INTERFACE -- Name: KAYLA RG Status: REG REF Re08/12/08 Age/Sex: 18/F Unit#: [id number] Location: [facility] : [birth year] -- Specimen: [id number] SOUT Spec Date: 08/12/[address]: Yung ellison MD Spec Type: SURGICAL P Received: 08/13/08-1218 Copies to: SPECIMEN CERVICAL BIOPSY HISTORY PRE-OP DIAGNOSIS: Low grade squamous intraepithelial lesion. GROSS DESCRIPTION The specimen is received in formalin labelled Kayla Rg, Cervical Biopsy, and consists of multiple, clement, soft tissue fragments measuring 0.8 x 0.5 x 0.3 cm. in aggregate. Submitted entirely, one cassette. DIAGNOSIS Uterus, cervix, biopsy - Low grade squamous intraepithelial lesion (condyloma). Signed Electronically by: VETO GOOD MD 08/14/08 1247 -- -- DEPARTMENT OF PATHOLOGY, [address] [place] [address] [facility] Permit #[id number] Veto Good M.D. Director of Laboratories -- 80 . A negative result does not preclude the presence of a C.trachomatis or N.gonorrhoeae infection because results are dependent on adequate specimen collection, absence of inhibitors, and sufficient rRNA to be detected. Test results may be affected by improper specimen collection, improper specimen storage, technical error, or specimen mixup. . 81 . A negative result does not preclude the presence of a C.trachomatis or N.gonorrhoeae infection because results are dependent on adequate specimen collection, absence of inhibitors, and sufficient rRNA to be detected. Test results may be affected by improper specimen collection, improper specimen storage, technical error, or specimen mixup. . 82 FINAL: NEGATIVE FOR GROUP B STREPTOCOCCUS 83 THE URINE SPECIMEN WAS TESTED AT THE LISTED CUTOFFS: DRUG CLASS TEST LEVEL (NG/ML) AMPHETAMINES 300 BARBITUATES 200 BENZODIAZEPINE METABOLITES 200 COCAINE METABOLITES 300 CANNABINOIDS 25 OPIATES 200 PCP 25 THIS IS A SCREENING PROCEDURE. POSITIVE RESULTS ARE NOT CONFIRMED. SPECIMEN WAS RECEIVED WITHOUT CHAIN OF CUSTODY. RESULTS SHOULD BE USED FOR MEDICAL PURPOSES ONLY. . 84 . A negative result does not preclude the presence of a C.trachomatis or N.gonorrhoeae infection because results are dependent on adequate specimen collection, absence of inhibitors, and sufficient rRNA to be detected. Test results may be affected by improper specimen collection, improper specimen storage, technical error, or specimen mixup. . 85 . A negative result does not preclude the presence of a C.trachomatis or N.gonorrhoeae infection because results are dependent on adequate specimen collection, absence of inhibitors, and sufficient rRNA to be detected. Test results may be affected by improper specimen collection, improper specimen storage, technical error, or specimen mixup. . 86 ---- RUN DATE: 08/26/06 [facility] NMI LIVE PAGE 1 RUN TIME: 1428 Specimen Inquiry RUN USER: INTERFACE [id number] ABBY RGINE <REG REF 08/23> ([id number]) YOBANY Jerome CNM., Jaye -- Specimen: [id number] SOUT Spec Date: 08/23/[address]: Jaye claros CNM. Spec Type: CYTOLOGY Received: 08/25/06-1256 Copies to: SOURCE ECTOCERVICAL/ENDOCERVICAL Thin Prep with Reflex HPV Test PATIENT INFORMATION ACTUAL COLLECTION DATE: 08/23/06 ? YES LAST MENSTRUAL PERIOD: 04/04/06 DATE OF PRIOR SPECIMEN: 06/24/06 ADEQUACY OF SPECIMEN Satisfactory for evaluation * Transformation zone component identified * DIAGNOSIS NEGATIVE FOR INTRAEPITHELIAL LESION OR MALIGNANCY * Shift in eduardo suggestive of bacterial vaginosis * The Pap Smear is a screening test designed to aid in the detection of premalign ant and malignant conditions of the uterine cervix. It is not a diagnostic procedure an d should not be used as the sole means of detecting cervical cancer. Both false-positive and false-negative reports do occur. Depending on your risk status, a Pap smear rylan uld be obtained and evaluated every one to three years. Signed Electronically signed Amrit ACUÑA(ASCP) 08/26/06 -- -- DEPARTMENT OF PATHOLOGY, [address] [place] [address] [facility] Permit #[id number] Alexy Toscano II, M.D. Director Veto Good M.D. Handwriting Expert D irector -- 87 Lymphopenia % 88 PLATELET COUNT COUNT CONFIRMED BY PLATELET ESTIMATE DONE ON SLIDE. 89 Imm. NE 2 Imm. NE 1 Giant Platelets Platelet Clumps 90 FINAL: NO GROWTH DAY 2 (<1,000 CFU/mL) 91 FINAL INTERPRETATION: No HIV antibody is detected. . This information has been disclosed to you from confidential records which are protected by [facility] law. State law prohibits you from making further disclosure of this information without the specific written consent of the person to whom it pertains, or as otherwise permitted by law. Any unauthorized further disclosure in violation of state law may result in a fine or group home sentence or both. General authorization for the release of medical or other information is not, except in limited circumstances set forth in Part 63, Title 10, of [facility], sufficient authorization for further disclosure. Disclosure of confidential HIV information that occurs as the result of a general authorization for the release of medical or other information will be in violation of the state law and may result in a fine or a group home sentence. . 92 . A negative result does not preclude the presence of a C.trachomatis or N.gonorrhoeae infection because results are dependent on adequate specimen collection, absence of inhibitors, and sufficient rRNA to be detected. Test results may be affected by improper specimen collection, improper specimen storage, technical error, or specimen mixup. . 93 . A negative result does not preclude the presence of a C.trachomatis or N.gonorrhoeae infection because results are dependent on adequate specimen collection, absence of inhibitors, and sufficient rRNA to be detected. Test results may be affected by improper specimen collection, improper specimen storage, technical error, or specimen mixup. . 94 The date recorded on the requisition indicates the sample(s) received were greater than 72 hours old upon arrival in our laboratory. 95 Negative <0.91 Equivocal 0.91 - 1.09 Positive >1.09 96 Normal adult hemoglobin present. 97 ---- RUN DATE: 07/01/06 [facility] NMI LIVE PAGE 1 RUN TIME: 47 Specimen Inquiry RUN USER: INTERFACE [id number] KAYLA RG / <REG REF 06/24> ([id number]) Rebeka Conrad RN., CNM. -- Specimen: [id number] SOUT Spec Date: 06/24/[address]: Geneva Moreno RN. BACK ROLLER. C Spec Type: CYTOLOGY Received: 06/28/06-1201 Copies to: SOURCE ECTOCERVICAL/ENDOCERVICAL Thin Prep with Reflex HPV Test PATIENT INFORMATION ACTUAL COLLECTION DATE: 06/24/06 ? YES PREVIOUS CYTOLOGY/SURGICAL SPECIMEN #: NEVER ADEQUACY OF SPECIMEN Unsatisfactory for evaluation * Specimen processed and examined, but unsatisfactory for evaluation of epi thelial * abnormality due to: * Insufficient epithelial component * DIAGNOSIS Please repeat. The Pap Smear is a screening test designed to aid in the detection of premalign ant and malignant conditions of the uterine cervix. It is not a diagnostic procedure an d should not be used as the sole means of detecting cervical cancer. Both false-positive and false-negative reports do occur. Depending on your risk status, a Pap smear rylan uld be obtained and evaluated every one to three years. Signed Amrit ACUÑA([facility]) 07/01/06 ALEXY TOSCANO MD 07/01/06 -- -- DEPARTMENT OF PATHOLOGY, [address] [place] [address] [facility] Permit #[id number] Alexy Toscano II, M.D. Director Veto Good M.D. Handwriting Expert D irector -- Procedures Date Code Description Status 05/02/2019 65289 Echography Uterus Complete Completed 03/05/2019 52365 OB Ultrasound First Trimester Completed 10/04/2013 36295 Insert Intrauterine Device Completed 06/05/2013 01354 Obstetric Care Routine Completed 06/02/2013 58193 Non-Stress Test Completed 05/07/2013 96096 Echography Uterus Follow-Up Or Repeat Completed 01/24/2013 29264 OB Ultrasound First Trimester Completed 12/20/2012 82235 OB Ultrasound First Trimester Completed 11/30/2012 35240 Nuchal Translucency Ultrasound /First Gestation Completed 11/15/2012 30646 OB Ultrasound First Trimester Completed 08/12/2008 36628 Colposcopy W/Biopsy Cervix/Endocervical Curettage Completed 01/07/2007 64945 Obstetric Care Routine Completed 12/28/2006 34844 Non-Stress Test Completed 12/23/2006 36468 Non-Stress Test Completed 12/19/2006 54575 Echography Uterus Follow-Up Or Repeat Completed 12/16/2006 28406 Non-Stress Test Completed 12/13/2006 14940 Non-Stress Test Completed 12/09/2006 96533 Biophysical Profile W/ NST Completed 12/09/2006 81453 Non-Stress Test Completed 11/30/2006 90006 Echography Uterus Follow-Up Or Repeat Completed 11/14/2006 87042 Echography Uterus Follow-Up Or Repeat Completed 09/01/2006 95487 Echography Uterus Follow-Up Or Repeat Completed 08/30/2006 69169 Antepartum Care 4-6 Visits Completed 08/23/2006 48420 Care Completed 08/19/2006 33368 Echography Uterus Complete Completed 07/21/2006 83792 OB Ultrasound First Trimester Completed 07/15/2006 17695 Care Completed 06/24/2006 17631 Echography Pelvic Complete Completed Encounters Type Date Location Provider Dx Diagnosis Office Visit 11/29/2013 [facility] [place] Office MarthaJoan, V25.09 Contraceptive 2:30p MD Management Other Office Visit 08/29/2013 [facility] Halle Marinelli V74.5 Screening Examination 11:00a MD Ama Venereal Disease V25.09 Contraceptive Management Other Office Visit 06/02/2013 5:22p Delivery Lucy Swift, 644.13 Labor Threatened CNM Other Antepartum Cond Or Compl Office Visit 06/12/2008 1:00p [facility] Lucy Swift, 622.10 Dysplasia Of [address] CNM Cervix NOS 616.10 Vaginitis & Vulvovaginitis Unspec V76.41 Screening Malignant Neoplasm Rectum V72.41 Test Negative V72.40 Test Unconfirm V72.42 Examination Or Test Positive Result V72.84 Examination Preoperative Unspec Plan of Treatment Future Appointment(s):07/23/2019 3:00 pm - Carolyne Patino CNM at [facility]07/09/2019 3:00 pm - Porsche Jaramillo CNM at [facility]06/27/2019 2:40 pm - Serina Reyna CNM at [facility]06/27/2019 2:30 pm - Laboratory at [facility]
[2019-05-31 07:19] LABS: HDL Cholesterol 61.8 mg/dL
[2019-05-31] MEDS: Famotidine TAB* 20 MG PO SCH ×2 (08:20→20:43)
[2019-05-31] MEDS: Ondansetron ODT TAB* 4 MG PO PRN (08:23)
[2019-05-31] MEDS ORDERED: lamoTRIgine TAB(*) 25 MG PO SCH (09:00)
[2019-05-31] MEDS ORDERED: Vitamin THERAPEUTIC TAB PO SCH (09:00)
[2019-05-31] MEDS: Prenatal Vitamin TAB PO SCH (09:19)
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
[2019-05-31] MEDS: traZODone TAB* 50 MG TAB PO SCH (20:43)
[2019-05-31] MEDS: Docusate CAP* 100 MG PO SCH (20:44)
[2019-06-01] MEDS: Prenatal Vitamin TAB PO SCH (08:30)
[2019-06-01] MEDS: lamoTRIgine TAB(*) 100 MG PO SCH (08:30)
[2019-06-01] MEDS: Famotidine TAB* 20 MG PO SCH ×2 (08:30→20:59)
[2019-06-01] MEDS: Docusate CAP* 100 MG PO SCH ×2 (08:30→20:59)
--- NOTE | 2019-06-01 10:18 | PN ---
Subjective - Subjective Service Type: 24234 Hosp care 25 min moderate complexity Subjective: Reports ongoing mild dysphoria and anxiety. Had sporadic thoughts that she would be better off but denies intent or plan. Is pleased that she slept well last note but notes mild residual sedation from trazodone. Wants to stick with this dose to see if she gets used to the sedation. Tolerated increase in Lamictal. Objective - General Observations Appearance: Neat Appears Stated Age: Yes Stature: Overweight Posture: WNL Eye Contact: Average Behavior/Activity: WNL - Interaction Observations Attitude Towards Examiner: Cooperative Stated Mood: Dysphoric, Anxious Affect: Full Speech Pattern/Tone: Clear, Appropriate, Normal Volume Thought Process: Coherent, Goal Directed Perception: WNL Thought Content: WNL Thought Process: Lethality: Passive Wish Hallucination Type: None Delusion Type: None - Cognitive Function Orientation: A&O x 4 Level of Consciousness: Awake, Alert, Appropriate Cognition: WNL Estimated Intelligence: Normal Insight: WNL Judgment Within Normal Limits: Yes - Medication Compliance Cooperative with Inpatient Medication Regimen: Yes - reports rare passive wish still Assessment - Assessment Inpatient DSM-V Dx: F31.4 Clinical Impression: Woman with likely post-traumatic stress disorder and borderline personality disorder. Has probable bipolar disorder depressed and is being treated for this at [facility]. Lamictal is fairly benign for the above conditions. She likely mainly needs a respite from outside stressors and psychotherapy to build coping skills and estimated length of stay is five days. She can be on 30 minute checks and have individual and group psychotherapy. Is tolerating increased lamictal and is sleeping well, which is important. Will continue psychotherapy and will allow staff passes. BSU: Problem List - Patient Problems (1) Suicidal intent Current Visit: Yes Status: Acute Priority: High Code(s): R45.851 - SUICIDAL IDEATIONS SNOMED Code(s): 978909334 (2) Depressed bipolar affective disorder Current Visit: Yes Status: Acute Priority: High Code(s): F31.30 - BIPOLAR DISORD, CRNT EPSD DEPRESS, MILD OR MOD SEVERT, UNSP SNOMED Code(s): 778499989 Plan - Plan Treatment Plan: Name: HERACLIO GRIJALVA Birthdate: 1990 [id number] Continued Medication Management: Different Medication Medications: Current Medications Acetaminophen (Tylenol Tab*) 650 mg PO Q4H PRN PRN Reason: PAIN or TEMP > 101 F Al Hydrox/Mg Hydrox/Simethicone (Maalox Plus*) 30 ml PO Q4H PRN PRN Reason: INDIGESTION Docusate Sodium (Colace Cap*) 100 mg PO BID [facility] Last Admin: 06/01/19 08:30 Dose: 100 mg Famotidine (Pepcid Tab*) 20 mg PO BID [facility] Last Admin: 06/01/19 08:30 Dose: 20 mg Lamotrigine (Lamictal Tab(*)) 100 mg PO DAILY [facility] Last Admin: 06/01/19 08:30 Dose: 100 mg Metoclopramide HCl (Reglan Tab*) 10 mg PO Q8H PRN PRN Reason: NAUSEA/VOMITING Multivitamins ( Vitamin Tab*) 1 tab PO DAILY [facility] Last Admin: 06/01/19 08:30 Dose: 1 tab Ondansetron HCl (Zofran Odt Tab*) 4 mg PO Q8H PRN PRN Reason: NAUSEA/VOMITING Last Admin: 05/31/19 08:23 Dose: 4 mg Trazodone HCl (Desyrel Tab*) 50 mg PO BEDTIME [facility] Last Admin: 05/31/19 20:43 Dose: 50 mg - Discharge Plan Discharge Plan: Outpatient Follow Up Outpatient Program: [facility]
[2019-06-01] MEDS ORDERED: Magnesium Hydroxide LIQ* 30 ML UDC PO ONE (13:14)
[2019-06-01] MEDS: traZODone TAB* 50 MG TAB PO SCH (20:59)
[2019-06-02] MEDS: Prenatal Vitamin TAB PO SCH (08:55)
[2019-06-02] MEDS: lamoTRIgine TAB(*) 100 MG PO SCH (08:55)
[2019-06-02] MEDS: Docusate CAP* 100 MG PO SCH ×2 (08:55→21:26)
[2019-06-02] MEDS: Famotidine TAB* 20 MG PO SCH ×2 (08:55→21:26)
--- NOTE | 2019-06-02 16:38 | PN ---
Subjective - Subjective Date of Service: 06/02/19 Service Type: 76217 Hosp care 15 min low complexity Subjective: Jessy reports doing better since her admission on Tuesday, with remission of SI. Mood now is better. Sleeping better on trazodone. Feels safe and well cared for with no report of problems here on the unit. Objective - General Observations Appearance: Neat Appears Stated Age: Yes Stature: WNL Posture: WNL Eye Contact: Average Behavior/Activity: WNL - Interaction Observations Attitude Towards Examiner: Cooperative Attitude Towards Parent/Guardian: Positive Interaction Stated Mood: Euthymic Affect: Full Speech Pattern/Tone: Clear, Appropriate, Normal Volume Thought Process: Coherent, Goal Directed Perception: WNL Thought Content: WNL Hallucination Type: None Delusion Type: None - Cognitive Function Orientation: A&O x 4 Level of Consciousness: Awake, Appropriate Cognition: WNL Estimated Intelligence: Normal Insight: WNL Judgment Within Normal Limits: Yes - Medication Compliance Cooperative with Inpatient Medication Regimen: Yes - Group Participation Participates in Group Activities: Yes Assessment - Assessment Merits Inpatient Hospitalization: For Stabilization, Consolidate Improvements, For Discharge Planning Inpatient DSM-V Dx: F31.4 Clinical Impression: Woman with likely post-traumatic stress disorder and borderline personality disorder. Has probable bipolar disorder depressed and is being treated for this at [facility]. Lamictal is fairly benign for the above conditions. She likely mainly needs a respite from outside stressors and psychotherapy to build coping skills and estimated length of stay is five days. She can be on 30 minute checks and have individual and group psychotherapy. Is tolerating increased lamictal and is sleeping well, which is important. Will continue psychotherapy and will allow staff passes. Plan - Plan Treatment Plan: Name: HERACLIO GRIJALVA Birthdate: 1990 [id number] Continue current meds. Encourage continued groups and milieu. Discharge planning. Medications: Current Medications Acetaminophen (Tylenol Tab*) 650 mg PO Q4H PRN PRN Reason: PAIN or TEMP > 101 F Al Hydrox/Mg Hydrox/Simethicone (Maalox Plus*) 30 ml PO Q4H PRN PRN Reason: INDIGESTION Docusate Sodium (Colace Cap*) 100 mg PO BID [facility] Last Admin: 06/02/19 08:55 Dose: 100 mg Famotidine (Pepcid Tab*) 20 mg PO BID [facility] Last Admin: 06/02/19 08:55 Dose: 20 mg Lamotrigine (Lamictal Tab(*)) 100 mg PO DAILY [facility] Last Admin: 06/02/19 08:55 Dose: 100 mg Metoclopramide HCl (Reglan Tab*) 10 mg PO Q8H PRN PRN Reason: NAUSEA/VOMITING Multivitamins ( Vitamin Tab*) 1 tab PO DAILY [facility] Last Admin: 06/02/19 08:55 Dose: 1 tab Ondansetron HCl (Zofran Odt Tab*) 4 mg PO Q8H PRN PRN Reason: NAUSEA/VOMITING Last Admin: 05/31/19 08:23 Dose: 4 mg Trazodone HCl (Desyrel Tab*) 50 mg PO BEDTIME [facility] Last Admin: 06/01/19 20:59 Dose: 50 mg - Discharge Plan Discharge Plan: Outpatient Follow Up Outpatient Program: [facility]
[2019-06-02] MEDS: traZODone TAB* 50 MG TAB PO SCH (21:26)
[2019-06-03] MEDS: Docusate CAP* 100 MG PO SCH ×2 (09:04→20:52)
[2019-06-03] MEDS: lamoTRIgine TAB(*) 100 MG PO SCH (09:04)
[2019-06-03] MEDS: Prenatal Vitamin TAB PO SCH (09:04)
[2019-06-03] MEDS: Famotidine TAB* 20 MG PO SCH ×2 (09:04→20:52)
[2019-06-03] MEDS: Ondansetron ODT TAB* 4 MG PO PRN (11:43)
[2019-06-03] MEDS: traZODone TAB* 50 MG TAB PO SCH (20:52)
[2019-06-04] MEDS: lamoTRIgine TAB(*) 100 MG PO SCH (09:14)
[2019-06-04] MEDS: Prenatal Vitamin TAB PO SCH (09:14)
[2019-06-04] MEDS: Docusate CAP* 100 MG PO SCH (09:14)
[2019-06-04] MEDS: Famotidine TAB* 20 MG PO SCH (09:14)
[2019-06-04 09:47] VITALS: BP 117/47
--- NOTE | 2019-06-04 11:45 | DCNOTE ---
Subjective - Subjective Service Types: 41366 Hosp DC Day Mgmt simple under 30 min Discharge Date: 06/04/19 Subjective: Patient is euthymic with bright affect, interacting with peers upon approach. She reports much improvement in mood and denies SI. She states she is hoping to work with her outpatient therapist on "coping skills and channeling anger." She states she has been sleeping better, as well. Objective - General Observations Appearance: Well Groomed Stature: WNL Posture: WNL Eye Contact: Average Behavior/Activity: WNL - Interaction Observations Attitude Towards Examiner: Cooperative Stated Mood: Euthymic Affect: Bright Speech Pattern/Tone: Clear, Appropriate, Normal Volume Thought Process: Coherent, Goal Directed Perception: WNL Thought Content: WNL Hallucination Type: None Delusion Type: None - Cognitive Function Orientation: A&O x 4 Level of Consciousness: Alert Cognition: WNL Estimated Intelligence: Normal Insight: WNL Judgment Within Normal Limits: Yes - Medication Compliance Cooperative with Inpatient Medication Regimen: Yes - Group Participation Participates in Group Activities: Yes DC Assessment - Assessment Clinical Impression: 29yo woman, employed, domiciled and 6 months who presented to ED with thoughts of suicide. She has been engaged in programming and safe on all checks. She reports improvement in mood and denies SI or passive wish. She is eager to be discharged and resume outpatient treatment. Merits Inpatient Hospitalization: No Clear for Discharge: Adequate Clinical Respons, Acceptable Safety Profile Inpatient DSM-V Dx: F31.4 Discharge Planning - Discharge Planning Discharge Plan: Outpatient Follow Up Outpatient Program: [facility] Recommendations for Continuing Care: Medication Management, Psychotherapy, Primary Care Followup, Specialty Followup Medications: Current Medications Acetaminophen (Tylenol Tab*) 650 mg PO Q4H PRN PRN Reason: PAIN or TEMP > 101 F Al Hydrox/Mg Hydrox/Simethicone (Maalox Plus*) 30 ml PO Q4H PRN PRN Reason: INDIGESTION Docusate Sodium (Colace Cap*) 100 mg PO BID [facility] Last Admin: 06/04/19 09:14 Dose: 100 mg Famotidine (Pepcid Tab*) 20 mg PO BID [facility] Last Admin: 06/04/19 09:14 Dose: 20 mg Lamotrigine (Lamictal Tab(*)) 100 mg PO DAILY [facility] Last Admin: 06/04/19 09:14 Dose: 100 mg Multivitamins ( Vitamin Tab*) 1 tab PO DAILY [facility] Last Admin: 06/04/19 09:14 Dose: 1 tab Last Admin: 06/03/19 11:43 Dose: 4 mg Trazodone HCl (Desyrel Tab*) 50 mg PO BEDTIME [facility] Last Admin: 06/03/19 20:52 Dose: 50 mg Discharge Planning: Prescriptions provided for discharge [x] Yes [] No Follow up care details as per social work arrangements [facility] Physician Referral for primary care and obstetrics Patient response to discharge plan: [x] eager for discharge [x] agreeable with discharge plan [] ambivalent about discharge [] disagrees with discharge today
--- NOTE | 2019-06-05 13:30 | DS ---
DISCHARGE SUMMARY: DATE OF ADMISSION: 05/30/19 DATE OF DISCHARGE: 06/04/19 SUPERVISING PSYCHIATRIST: Dr. Darnell Esteves.* (DICTATED BY SIMONE WILKINSON NP) DISCHARGE DIAGNOSES: 1. Posttraumatic stress disorder. 2. Unspecified bipolar disorder. 3. Borderline personality disorder per history. 4. Cannabis use disorder. CONDITION AT THE TIME OF DISCHARGE: Improved. The patient has been safe on all checks and denied suicidal ideation. She reports improvement in mood. She has been fully engaged in programming and reports desire to continue to work with her outpatient therapist on "coping skills and channeling anger." She reports improvement in sleep as well. She denies referral for substance use treatment. The patient is discharged to home. MENTAL STATUS EXAM: Fide is a 29-year-old single female, who is 6 months with her third child. She appears stated age. She is well groomed and casually dressed in her own clothing. The patient is pleasant and participates fully in conversation. She is alert and oriented x3. Eye contact is good. Speech is soft, articulate, and spontaneous. Concentration is good. Memory 3/3. Mood is euthymic with bright affect. No abnormal psychomotor activity noted. Thought process is circumstantial, logical, and goal directed. Thought content is negative for SI or passive wish. She denies HI or . She denies auditory or visual hallucinations. Insight and judgment are good. Fund of knowledge is excellent. INSTRUCTIONS GIVEN TO PATIENT: A. Medications: 1. Docusate 100 mg p.o. b.i.d. 2. Pepcid 20 mg p.o. b.i.d. 3. Lamotrigine 100 mg p.o. daily. 4. Trazodone 50 mg p.o. q.h.s. B. Diet: Regular. C. Activity: Ambulation as tolerated. Tobacco cessation is not applicable. There are no pending labs or diagnostic studies. E. Substance use followup: The patient declined offer for substance use treatment. HOSPITAL COURSE: Part A: Reason for admission: The patient is a 29-year-old, single female who is 6 months with her third child. Please see full psychiatric H and P by Dr. Braeden Dobson. The patient presented to the emergency department with suicidal ideation and thoughts of an overdose or asking a friend for a gun. She reports feeling overwhelmed and depressed. She states she has been depressed since age 9 and had admissions here as an adolescent in 2008 and 3 years ago. The patient reports 1 suicide attempt by overdose 10 years ago. Recent stressors include all of her food spoiling and her car breaking down. 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 She has problematic relationships with the father of her fetus and separately with the father of her 6-year-old son. Her oldest child, who is 12, has been adopted. Another stressor is that she has to stop smoking marijuana because the delivery is approaching and she is not sure if she can do that. She has a history of polysubstance use. The patient states she takes vitamins and lamotrigine 50 mg a day, which is being titrated by [facility]. She sees Dayna Everett and Dr. Erickson. She reports good trazodone response for sleep, but that the Lamictal and Prozac were not helpful, Zoloft made her feel racy and irritable. Part B: Psychiatric treatment rendered: The patient was admitted to adult behavioral services unit on voluntary status. Code status was full. She was placed on 15-minute checks for her safety. Admitting psychiatrist increased lamotrigine to 100 mg a day and started trazodone 50 mg at night. As stated above, the patient participated fully in programming. She reported feeling improved mood, sleep and outlook in life. On day of discharge, the patient reported desire to be discharged. She cited motivation to return to work and continue outpatient mental health counseling. She reports that her current therapist is one with whom she has a very good rapport and can talk about things that she has not been able to talk about with other therapists in the past. Due to obligation to treat in least restrictive setting, discharge was agreed upon by treatment team. SIMONE WILKINSON NP [id number]/CPS #: [id number] CARLA
== END 2019-06-04 14:08 | disposition home or self-care (01) | DRG 753 ==
LOC: ED 16:19 → BSU 18:49
PROVIDERS: ADMIT Psychiatry & Neurology Psychiatry; ATTEND Psychiatry & Neurology Psychiatry
DX: F31.4 Bipolar disorder, current episode depressed, severe, without psychotic features (principal); R45.851 Suicidal ideations; F43.10 Post-traumatic stress disorder, unspecified; F60.3 Borderline personality disorder; F12.90 Cannabis use, unspecified, uncomplicated; Z62.810 Personal history of physical and sexual abuse in childhood; Z79.899 Other long term (current) drug therapy
CPT/HCPCS: 36415; 80053; 80061; 80307; 80320; 80329; 81003; 81015; 83036; 84443; 85025; 85660; 87086; 99222; 99231; 99232; 99238; 99284; A9270-GY; G0480

== ENCOUNTER 2019-09-13 12:14 | Inpatient (IN) | payer BC, MEDICAID ==
[2019-09-13] MEDS ORDERED: Buffered Lidocaine 1% SYRIN* 1 ML/SYRINGE INTRADERM ONE (13:31)
[2019-09-13] MEDS ORDERED: Lactated Ringers 1000 ML Bag* 1,000 ML IV ONE ×2 (13:31→19:50)
--- NOTE | 2019-09-13 13:47 | HP ---
General Information - Reason for Visit Here for elective IOL - General Information Maternal Age: 29 Grav: 3 Para: 2 SAB: 0 IEA: 0 Estimated Due Date: 09/20/19 Determined By: LMP Maternal Blood Type and Rh: O Positive - Results this Serology/RPR Result: Non-Reactive Rubella Result: Immune HBsAg Result: Negative HIV Result: Negative GBS Culture Result: Negative Past Medical History Delivery History: See Records Delivery History Comment: SVB 12/2006 IOL for PIH B 05/2013 no complications Pertinent Past Medical History: See Records Past Medical History Comment: Asthma, exercise induced, controlled during Depression, hx PP depression psoriasis Past Surgical History Comment: [email or web address] 01/2007 Pertinent Family History: See Records Family History Comment: Unknown, adopted - Antepartal Records Antepartal Records: Reviewed, Complicated by: - Mental health; HSV, prophylaxis given. Review of Systems Constitutional: Comfortable CV Complaint: No Respiratory: Shortness of Breath: No Gastrointestinal: Normal Bowel Movement, Nausea Genitourinary: No Leaking Fluid, Spotting Musculoskeletal: Contractions Neurological: No Headache, No Visual Changes Movement: Normal Exam Allergies/Adverse Reactions: Allergies No Known Allergies Allergy (Verified 04/26/19 09:26) BP 136/67 HR 82 T 97.4 O2 99 - Measurements Height: 5 ft 4 in Weight: 223 lb Weight in lbs: 223.798325 Body Mass Index (BMI): 38.2 Pre- Weight: 185 lb Weight Gained This : 38 lbs and 0 ozs - Exam Breast: Breast Exam Deferred CVA: No CVA Tenderness Extremities: No Edema Heart: Normal Rhythm/Heart Sounds HEENT: No Significant Findings Lungs: Clear Bilaterally Rectal: Rectal Exam Deferred Reflexes: - - DTR +1, no clonus Thyroid: - - WNL on entry to [facility] - Abdominal Exam Abdomen Exam: Non-Tender, Fundal Height Consistent with Dates - Ultrasound/Biophysical Profile Ultrasound Status: Not Done Targeted Exam Findings Estimated Weight: 7.5lbs Cervical Exam: 3cm Effacement: 70% Station: -1 Presenting Part: Vertex Membrane Status: Intact Bleeding/Discharge: None EFM Findings - External Monitor Findings Baseline Heart Rate: 135 External Monitor Findings: Accelerations Present, No Pattern of Variable or Late Decelerations, Variability Moderate Contractions: Irregular, Mild Contraction Frequency: q 10 min Assessment/Plan - Assessment IUP @ 39+0 weeks gestation for elective induction of labor. No evidence of metabolic acidemia. Intact bag of castillo. - Obstetrical Risk Factors Obstetrical Risk Factors: Obesity - Plan Plan: Induction, Admit - Anticipate Vaginal Delivery Plan Comment: PARQ discussion of low dose pitocin; patient in agreement. Will initiate and titrate per protocol. Do labs. Encouraged movement and upright positions. Patient will likely desire epidural though may want to try nitrous oxide first. Anticipate SVB. - Date/Time of Admission Date of Admission: 09/13/19 Time of Admission: 12:55
[2019-09-13] MEDS ORDERED: Lactated Ringers 1000 ML Bag* 1,000 ML IV SCH ×2 (14:00→20:00)
[2019-09-13] MEDS ORDERED: Oxytocin in LR* 20 UNITS/1,000 ML BAG IVPB SCH (14:00)
[2019-09-13 14:12] LABS: ABS Eosinophils 0.1 10^3/ul (0-0.6); ABS Lymphocytes 1.5 10^3/ul (1.0-4.8); ABS Monocytes 0.7 10^3/ul (0-0.8); ABS Neutrophils 7.8 10^3/ul (1.5-7.7); Eosinophil % 0.7 %; Hematocrit 31 % (35-47); Hemoglobin 10.8 g/dL (12.0-16.0); Mean Corpuscular HGB Conc 35 g/dL (31-36); Mean Corpuscular Hemoglobin 29 pg (27-31); Mean Corpuscular Volume 83 fL (80-97); Mean Platelet Volume 7.6 fL (7.4-10.4); Platelet Count 265 10^3/uL (150-450); Red Blood Count 3.77 10^6 /uL (3.70-4.87); Red Cell Distribution Width 15 % (10-15); White Blood Count 10.1 10^3/uL (3.5-10.8)
[2019-09-13 14:31] LABS: Urine Benzodiazepine Screen None Detected (None Detect); Urine Opiates Screen None Detected (None Detect)
--- NOTE | 2019-09-13 16:51 | PN ---
Progress Note - Progress Note Date of Service: 09/13/19 Note: S: Pt feels ready to have her membranes ruptured. Contractions are a little stronger. Thinking about epidural vs nitrous for pain as it increases. Family and friend at bedside supporting. O: VSS FHTs 135 VE: 2-3cm/90%/-1/vtx UCs q 2-3 mins Pitocin @ 6mu A: IUP @39 0/7 in early labor AROM attempted, completed by Chico Damon CNM. Fluid clear. No evidence of metabolic acidemia P: Consider Nitrous for pain management. Continue to titrate Pitocin. Continue to monitor maternal/ status
[2019-09-13] MEDS ORDERED: OBEPIDURAL* 250 ML EPIDURAL ONE (19:21)
[2019-09-13] MEDS ORDERED: Bupivacaine 0.25% SDV PF* 10 ML VIAL INJ ONE (19:27)
[2019-09-13] MEDS ORDERED: EPHEDrine (Pressors)* 50 MG/ML VIAL IV PUSH PRN (19:50)
[2019-09-13] MEDS ORDERED: Phenylephrine 40 MCG/ML SYRINGE IV PUSH PRN (19:50)
[2019-09-13] MEDS ORDERED: Sodium Citrate/Citric Acid* 15 ML UDC PO PRN (19:50)
[2019-09-13] MEDS ORDERED: Famotidine TAB* 20 MG PO PRN (19:50)
[2019-09-13] MEDS ORDERED: OBEPIDURAL* 250 ML EPIDURAL SCH (20:00)
--- NOTE | 2019-09-13 20:20 | PN ---
Progress Note - Progress Note Date of Service: 09/13/19 Note: S: Now comfortable with epidural as desired. Was in tub and used nitrous to good effect previously. O: VE 6cm/90/0 Pit @ 12 FHT 135 Cat 1 UCs q 2-3 A: IUP @ 39+0 weeks gestation in active labor Ruptured membranes No evidence acidemia P: Encouraged position changes. Anticipate SVB.
[2019-09-14] MEDS ORDERED: Glycerin ADULT SUPP PR PRN (02:08)
--- NOTE | 2019-09-14 02:36 | PROCNOTE ---
[facility] OB: Delivery Note - Delivery A Date of : 09/14/19 Time of : 01:15 [place] Sex: Male Weight at : 7 lb 3 oz Score 1 Minute: 9 Score 5 Minutes: 9 Gestational Age in Weeks and Days at Delivery: 39 Weeks and 1 Days Delivery Method: Spontaneous Vaginal Labor: Induced Did Patient attempt ?: N/A, No Previous Amniotic Fluid: Clear Estimated Blood Loss: 150 Anesthesia/Analgesia: CEI for Labor Delivered By: Chico Damon SNM - Nursery Level of Nursery: Regular/Bedside - Perineum Perineal Injury: Abrasion Only - Not Repaired Perineal Repair: None - Events Delivery Events of Note: Pitocin During Labor - Additional Delivery Notes Additional Delivery Notes: Patient admitted for elective induction. Pitocin and amniotomy lead to active labor. Length of active labor 8 hours 24 min, pushed 15 min. Baby born OA to JASBIR @ 0115, delivered to maternal abdomen with spontaneous cry with stimulation. Cord doubly clamped and cut by FOB once pulsations ceased. Placenta delivered in Ruy presentation with gentle cord traction @ 0124. Fundus firm with massage and pitocin infusing. Perineum with small hemostatic abrasion, not repaired. Baby at breast to initiate . Mother and baby stable.
[2019-09-14] MEDS: Ibuprofen TAB* 600 MG PO PRN ×3 (02:56→20:05)
[2019-09-14] MEDS: Witch Hazel PAD* JAR TOPICAL PRN ×2 (02:56→21:39)
[2019-09-14] MEDS: Dibucaine 1% 28.35 GM TUBE PR PRN ×2 (02:56→21:39)
[2019-09-14] MEDS ORDERED: Oxytocin in LR* 20 UNITS/1,000 ML BAG IVPB SCH (03:00)
[2019-09-14] MEDS: Docusate CAP* 100 MG PO SCH ×3 (07:31→21:38)
[2019-09-14] MEDS: lamoTRIgine TAB(*) 100 MG PO SCH (07:31)
[2019-09-14] MEDS: Famotidine TAB* 20 MG PO SCH ×2 (07:41→21:38)
[2019-09-14] MEDS: Acetaminophen TAB* 325 MG PO PRN ×2 (16:30→22:07)
[2019-09-15 06:45] LABS: ABS Basophils 0.1 10^3/ul (0-0.2); ABS Eosinophils 0.2 10^3/ul (0-0.6); ABS Lymphocytes 2.4 10^3/ul (1.0-4.8); ABS Monocytes 0.8 10^3/ul (0-0.8); Eosinophil % 2.4 %; Hematocrit 32 % (35-47); Hemoglobin 10.4 g/dL (12.0-16.0); Lymphocyte % 25.2 %; Mean Corpuscular HGB Conc 33 g/dL (31-36); Mean Corpuscular Hemoglobin 29 pg (27-31); Mean Corpuscular Volume 87 fL (80-97); Mean Platelet Volume 7.9 fL (7.4-10.4); Nucleated Red Blood Cells % 0.1; Platelet Count 218 10^3/uL (150-450); Red Blood Count 3.65 10^6 /uL (3.70-4.87); Red Cell Distribution Width 15 % (10-15); White Blood Count 9.6 10^3/uL (3.5-10.8)
[2019-09-15] MEDS: Docusate CAP* 100 MG PO SCH ×3 (07:53→21:25)
[2019-09-15] MEDS: Ibuprofen TAB* 600 MG PO PRN ×3 (07:53→20:06)
[2019-09-15] MEDS: Famotidine TAB* 20 MG PO SCH ×2 (07:53→21:25)
[2019-09-15] MEDS: lamoTRIgine TAB(*) 100 MG PO SCH (07:54)
[2019-09-15] MEDS ORDERED: Ferrous Gluconate TAB* 324 MG TAB PO SCH (09:00)
[2019-09-16] MEDS: Ibuprofen TAB* 600 MG PO PRN (08:12)
[2019-09-16] MEDS: Docusate CAP* 100 MG PO SCH (08:12)
[2019-09-16] MEDS: lamoTRIgine TAB(*) 100 MG PO SCH (08:13)
[2019-09-16 08:16] VITALS: BP 123/65
[2019-09-16] MEDS: Famotidine TAB* 20 MG PO SCH (08:44)
== END 2019-09-16 11:25 | disposition home or self-care (01) | DRG 560 ==
LOC: MCHOBOUT 12:14 → MCHOB 12:55
PROVIDERS: ADMIT Midwife; ATTEND Midwife
PROC: 10E0XZZ Delivery of Products of Conception, External Approach (ICD-10-PCS; principal; 2019-09-14)
PROC: 10907ZC Drainage of Amniotic Fluid, Therapeutic from Products of Conception, Via Natural or Artificial Opening (ICD-10-PCS; 2019-09-14)
PROC: 3E033VJ Introduction of Other Hormone into Peripheral Vein, Percutaneous Approach (ICD-10-PCS; 2019-09-14)
DX: O99.52 Diseases of the respiratory system complicating childbirth (principal); Z37.0 Single live birth; O99.344 Other mental disorders complicating childbirth; F32.9 Major depressive disorder, single episode, unspecified; O99.214 Obesity complicating childbirth; Z3A.39 39 weeks gestation of pregnancy
CPT/HCPCS: 36415; 80307; 85025; 86850; 86900; 86901; A9270-GY; J3490